=== PATIENT | male | born 1985 | race Caucasian/White ===

== ENCOUNTER 2016-10-18 06:40 | Emergency (ER) | payer SELFPAY ==
[~2016-10-18] VITALS: Ht 180.3 cm; Wt 79.4 kg
[~2016-10-18 06:40] MED LIST: KEPPRA500 M1; NO MEDICATIONS
[2016-10-18] MEDS ORDERED: NO MEDICATIONS (06:48)
== END 2016-10-18 07:30 | disposition home or self-care (01) ==
LOC: SED 06:40
DX: L02.414 Cutaneous abscess of left upper limb (principal); F17.200 Nicotine dependence, unspecified, uncomplicated; Z88.1 Allergy status to other antibiotic agents
CPT/HCPCS: 10060; 99282